=== PATIENT | female | born 1985 | race Caucasian/White ===

== ENCOUNTER → 2019-02-06 15:48 | Outpatient (ROUT) | payer SELFPAY | PROVIDERS: Visit Provider Family Medicine | DX: Z34.90 Encounter for supervision of normal pregnancy, unspecified, unspecified trimester (principal) | CPT/HCPCS: 87081 ==

== ENCOUNTER 2019-03-04 12:20 | Outpatient (CLI) | payer BC, SELFPAY | END 2019-03-04 13:00 | disposition home or self-care (01) | LOC: LABOR 12:37 → OB 03-05 13:42 | PROVIDERS: Visit Provider Family Medicine | DX: Z34.83 Encounter for supervision of other normal pregnancy, third trimester (principal); Z3A.40 40 weeks gestation of pregnancy | CPT/HCPCS: 59025; G0378; G0379 ==

== ENCOUNTER 2019-03-05 07:07 | Inpatient (IN) | payer OTHER, SELFPAY ==
--- NOTE | 2019-03-05 07:42 | P.HPOB_ITS ---
OB HPI Date/Time Date of admission: 03/05/19 Date Patient Seen: 03/05/19 Time Patient Seen: 07:43 History of Present Condition Chief complaint: OBS : 4 Para: 1 Estimated Date of Delivery: 03/04/19 Estimated Gestational Age (weeks): 40 07/09 Narrative: Asya Wilson is a 33 year old female who presents for induction for persistent latent phase labor with no significant change. Fatiguing. Requesting induction. Patient otherwise is a at 40 weeks plus who has had no significant complications during this . Has not smoked since baby was less than 12 weeks. No other complaints. No problems. Contractions have been persistent keeping her awake but not increasing in intensity. No leaking fluid. No other change or complaint. Past medical history significant for history of migraines, history of smoking, history of depression, none of which has been significantly active during this . Did have reflux and was started on treatment Past surgical history none Indications Indication for induction OB: maternal discomfort Other reason(s) for admission: Severe fatigue and patient request History of Present care: good care Dating criteria: LMP confirmed by 1st trimester US Ultrasounds: normal 1st trimester US and normal mid trimester US Obstetrical complications: none Medical complications: none Preadmission Labs Blood type: O (+) positive -: Antibody screen: negative, Cystic fibrosis screen: unknown, GBS status: negative, HBsAG: negative, HIV: negative, HSV 1: negative, HSV 2: negative and RPR/VDLR: negative -: Chlamydia screen: not detected and Gonorrhea screen: not detected -: Rubella: immune and Varicella: immune HCAB: negative PAP: Normal Sequential screen: refused Prior (ies) History: Two for 1638 weeks 41 hours epidural [facility] male 9 lb 8 oz, 11 14 miscarriage, 215 miscarriage Evaluation Evaluation Category of Tracing: I Cervical dilation (cm): 2 Cervical effacement (%): 60 station: -1 [facility] Social History Smoking Status: Former smoker Meds Home Medications and Allergies Home Medications Medication Instructions Recorded Confirmed Type No Known Home Medications 03/05/19 03/05/19 History Allergies Allergy/AdvReac Type Severity Reaction Status Date / Time fluoxetine Allergy jaw pain Verified 03/05/19 08:28 Review of Systems Review of Systems ROS Unobtainable: All systems reviewed & are unremarkable except as noted in HPI and below Exam Vital Signs (past 8 hours): Alert smiling female no acute distress. Lungs are clear. Heart regular rate and rhythm. Abdomen is gravid. Vertex. Estimated weight 9 lb. Extremities without cyanosis clubbing edema. Neurologic exam normal reflexes Objective Labs Result Diagrams: 03/05/19 07:45 Assessment and Plan Assessment and Plan Assessment and Plan narrative: term requesting induction. Should be right by cervical evaluation. Pitocin today. Rupture is seen as we can. Discussed with patient. Risks and benefits. Questions answered. Follow-up as day progresses.
[2019-03-05] MEDS: LACTATED RINGERS 1,000 ML 100 ML IV (08:01)
[2019-03-05] MEDS: OXYTOCIN PREMIX 30 UNIT/500 ML PLAST..BAG IV (08:01)
[2019-03-05 08:11] VITALS: BP 107/57
--- NOTE | 2019-03-05 08:32 | P.HPOB_ITS ---
OB HPI History of Present Condition Chief complaint: OBS Narrative: Asya Wilson is a 33 year old female [facility] Social History Smoking Status: Former smoker Meds Home Medications and Allergies Home Medications Medication Instructions Recorded Confirmed Type No Known Home Medications 03/05/19 03/05/19 History Allergies Allergy/AdvReac Type Severity Reaction Status Date / Time fluoxetine Allergy jaw pain Verified 03/05/19 08:28 Objective Labs Result Diagrams: 03/05/19 07:45
[2019-03-05 08:33] LABS: Add Manual Diff / Slide Review NO; Basophils Absolute Auto 0 /uL (0-100); Basophils Percent Auto 0.4 % (0-2); Eosinophils Absolute Auto 100 /uL (0-450); Eosinophils Percent Auto 1.8 % (2-4); Hematocrit 31.7 % (36-46); Hemoglobin 10.9 g/dL (12.0-16.0); Lymphocytes Absolute Auto 1600 /uL (1100-4500); Lymphocytes Percent Auto 22.2 % (25-40); Mean Corpuscular HGB Conc 34.4 % (30-36); Mean Corpuscular Hemoglobin 29.7 PG (26-34); Mean Corpuscular Volume 86.5 fL (80-100); Monocytes Absolute Auto 700 /uL (0-900); Monocytes Percent Auto 10.1 % (3-14); Neutrophils Absolute Auto 4800 /uL (1500-7000); Neutrophils Percent Auto 65.5 % (50-75); Platelet Count 136 X10^3/uL (150-400); Red Blood Cell Count 3.67 X10^6/uL (4.0-5.2); Red Cell Distribution Width 14.3 % (11.6-14.8); White Blood Cell Count 7.3 X10^3/uL (4.5-11.0)
--- NOTE | 2019-03-05 08:35 | PM.PROC.1 ---
Procedures Date/Time Date of procedure: 03/05/19 Time of procedure: 08:35 General Procedure description: Patient with normal heart monitor category 1 check revealed 2 cm 60% -1 vertex intact. AROM was undertaken with clear fluid.
[2019-03-05] MEDS: FENT 2MCG/ML BUPIV 0.125% EPI 200 MCG/100 ML PLAST..BAG 15 MCG EPIDURAL (10:45)
--- NOTE | 2019-03-05 13:07 | PM.OBPNLAB ---
Date/Time Date Patient Seen: 03/05/19 Time Patient Seen: 13:07 Pain Control Pain control: epidural Pelvic Exam Dilation (cm): 5 Effacement (%): 75 station: -2 Amniotic membrane status: Ruptured Contractions Contraction pattern: Regular Status status: Category l Assessment and Plan Assessment: active labor and induction ongoing Comments: Will continue PET certainly cervical change is happening but need more pressure on the cervix baby needs to descend. If not much descent will need to look at positioning. Patient understands questions answered recheck 2 hours
--- NOTE | 2019-03-05 16:34 | PM.OBPNLAB ---
Date/Time Date Patient Seen: 03/05/19 Time Patient Seen: 16:34 Pain Control Pain control: epidural Pelvic Exam Dilation (cm): 9 Effacement (%): 100 station: -2 Amniotic membrane status: Ruptured Contractions Contractions on admission: regular Pitocin rate (mU/min): 13 Contraction pattern: Regular Status status: Category l Assessment and Plan Assessment: active labor and induction ongoing Plan: continuous present management
--- NOTE | 2019-03-05 21:40 | PM.OBPRVD ---
Labor & Delivery Delivery date: 03/05/19 Intrapartal events: None Cervical ripening method: none Induction method: AROM Delivery augmentation: pitocin Delivery monitor: external uterine Route of delivery: L&D Laceration Description: Perineal - 2nd Degree Delivery repair: vicryl Estimated blood loss (mL): 200 Anesthesia type: Epidural Complications: None Narrative: Patient was brought in for induction for 40 weeks and large infant and persistent prodrome labor latent phase. Patient had some small changes but otherwise really no major issues. First stage patient was ruptured immediately upon presentation through 2 cm cervix. Clear fluid. heart monitor remained stable. Pitocin was began and was pushed up to 8 milliunits. heart monitor was category 1 throughout the 1st stage. Patient had some slowing initially but position changes increased improvement in speed of contractions and positional change. Patient then pretty rapidly went from 5-10. At this point she was placed in lithotomy position and was behind to hold legs. Second-stage went relatively quickly at 4-5 pushes with DELFIN over second-degree midline tear child was delivered head and shoulder anterior and then bulb suctioned mouth and nose. Shoulders delivered easily up onto the abdomen. Delayed clamp was then done to the cord. Grandmother cut cord. No resuscitation was required. Cord bloods were obtained. Placenta delivered spontaneous intact 3 vessels. Perineal tear was then evaluated with excellent anesthesia already. Close than usual running Vicryl manner. No complications. EBL less than 200 cc. Mother and were in stable condition.
[2019-03-05] MEDS: IBUPROFEN 600 MG TABLET PO (22:16)
[2019-03-05] MEDS: DERMOPLAST SPRAY 20% 60 ML 1 SPRAY TOP (22:18)
[2019-03-06] MEDS: ACETAMINOPHEN 325 MG TABLET 650 MG PO ×2 (03:53→09:32)
[2019-03-06] MEDS: IBUPROFEN 600 MG TABLET PO ×3 (03:54→17:00)
[2019-03-06 05:41] LABS: Hemoglobin 9.4 g/dL (12.0-16.0)
[2019-03-06] MEDS: DOCUSATE 250 MG CAPSULE PO (09:30)
[2019-03-06] MEDS: HYDROCODONE/ACET 5/325 TABLET 1 TAB PO ×2 (11:21→17:00)
--- NOTE | 2019-03-06 18:26 | P.DS_ITS ---
Discharge Providers Provider Date of admission: 03/05/19 07:07 Discharge Date: 03/06/19 Primary care physician: Dr. Fabrizio Patton Consults: 03/05/19 18:23 Consult to Research Statistician Routine Comment: Discharge provider: Adam Patton MD Summary Hospital Course Date Patient Seen: 03/06/19 Time Patient Seen: 18:26 Procedures: , induction of labor with a ROM, augmentation of labor with Pitocin Hospital Course: Patient recovered over the 1st 4 hours. Did well. Had some minimal pain initially but started having more pain more cramping with breast-feeding. Minimal bleeding. Was given a hydrocodone on the 1st day and did well. Amite li ke it controlled her pain. Was also using ibuprofen which she felt was going well. Appetite was good. Tolerated p.o. well. Breast-feeding was going well no major issues. Requesting to go home. Peripartum Data Infant Delivery Method: Natural Vaginal Laceration description: Perineal - 2nd Degree Episiotomy description: None Procedures: Second degree midline tear repair complications: none Status at Discharge Cognitive/behavioral status at discharge: at baseline, oriented Functional status at discharge: independent ambulation Overall status at discharge: patient is progressing back to baseline Time Spent with Patient Time attestation: Total time spent providing and/or coordinating discharge services: Specific discharge activities: No intercourse for the next 6 weeks. Slow increase in activity okay. Do not resume smoking Objective Labs Result Diagrams: 03/06/19 05:10 Labs: Laboratory Results - last 24 hr 03/06/19 05:10 Hgb 9.4 L Hct 27.0 L Discharge Plan Discharge Plan Patient Disposition: Home Discharge Med Rec/Prescriptions Prescriptions: New hydrocodone-acetaminophen 5-325 mg Tablet 1 tab PO Q4HR PRN (Reason: Pain, Moderate (4-6)) Qty: 30 RF: 0 ibuprofen 600 mg Tablet 600 mg PO Q6HR PRN (Reason: Pain, Mild (1-3)) Qty: 90 RF: 0 Follow up/Referrals: Adam Patton MD [Physician] - 6 Weeks (please call for appointment) Provider Discharge Instructions Diet: Diet as Tolerated Activity: no intercourse until no bleeding and no pain. slow increase activity Skin/Wound/Dressing Care Report to your healthcare provider any signs of infection, such as:: chills, fever Visit Report/Discharge Packet Stand Alone Forms: Discharge: Care Visit Report Forms: Stroke Signs & Symptoms
== END 2019-03-06 18:30 | disposition home or self-care (01) | DRG 807 ==
PROVIDERS: Admitting Provider Family Medicine; Visit Provider Family Medicine
DX: O75.81 Maternal exhaustion complicating labor and delivery (principal); Z37.0 Single live birth; O70.1 Second degree perineal laceration during delivery; Z3A.40 40 weeks gestation of pregnancy
CPT/HCPCS: 01967; 36415; 59050; 85014; 85018; 85025; 86850; 86900; 86901; G0379; J2590

== ENCOUNTER 2019-06-16 13:56 | Emergency (ER) | payer OTHER, SELFPAY ==
[2019-06-16] VITALS (7 sets, daily range): BP systolic 102–132; BP diastolic 58–82; PULSE 79–96; RESP 13–22; TEMP 37; O2SAT 96–98
--- NOTE | 2019-06-16 14:32 | ED_ITS ---
HPI - General Adult <Jennifer Agustin MD - Last Filed: 06/17/19 07:21> General Chief complaint: Dizziness Stated complaint: Dizzy, Light Headed, High BP Time Seen by Provider: 06/16/19 14:31 Source: patient Mode of arrival: Ambulatory History of Present Illness HPI narrative: 34-year-old at 3 months presents with erratic blood pressure and episodes of lightheadedness developing over the last 16 days. She has been tracking her blood pressure and his noted a systolic low of 98 a systolic high of 178 and a diastolic single high measurement of 118. The majority of her pressures are in the 140/70 range. She notes that she has been having more episodes of palpitations and her EKG also shows frequent PVCs. She describes as normal spontaneous vaginal without excessive blood loss or episodes of significant hypotension surrounding delivery. She is breast- feeding and otherwise recovering nicely after her recent . She states that she is eating and drinking normally and the episodes of dizziness as well as erratic blood pressure does not seem to be related to diet Related Data Previous Rx's Medication Instructions Recorded hydrocodone-acetaminophen 1 tab PO Q4HR PRN #30 tab 03/06/19 ibuprofen 600 mg PO Q6HR PRN #90 tab 03/06/19 Allergies Allergy/AdvReac Type Severity Reaction Status Date / Time fluoxetine Allergy jaw pain Verified 03/05/19 08:28 Review of Systems <Jennifer Agustin MD - Last Filed: 06/17/19 07:21> Review of Systems Narrative: Denies ? fever ? cough ? cold ? chills ? chest pain ? dyspnea ? orthopnea ? wheezing ? abdominal pain ? change to bowel or bladder habits ? nausea vomiting ? skin changes no Increased lower extremity edema, she is currently breast feeding Patient History <Jennifer Agustin MD - Last Filed: 06/17/19 07:21> Social History Smoking Status: Current every day smoker Smoking Status: Current every day smoker Exam <Jennifer Agustin MD - Last Filed: 06/17/19 07:21> Narrative Exam Narrative: General: Healthy appearing, in no acute distress. Able to give a complete and coherent history. Well-nourished well-developed HEENT: Moist mucous membranes, normal sclera with reactive pupils, Neck: No JVD, supple Respiratory: Lungs are clear to auscultation, no wheezing no rales no rhonchi. Full and symmetrical air movement Cardiac: Regular rate and rhythm no murmurs no bruits Abdomen: Soft nontender good bowel tones, no flank pain Skin: Warm and dry, no rashes Neurologic: Grossly neurologically intact with no obvious asymmetries or abnormalities Extremities: No trauma, well perfused Psych: Cooperative, appropriate insight and affect Initial Vital Signs Initial Vital Signs: Vital Signs Temperature 98.6 F 06/16/19 13:59 Pulse Rate 84 06/16/19 13:59 Respiratory Rate 22 06/16/19 13:59 Blood Pressure 123/82 06/16/19 13:59 Pulse Oximetry 97 06/16/19 13:59 <Adam Chandra MD - Last Filed: 06/16/19 21:16> Initial Vital Signs Initial Vital Signs: Vital Signs Temperature 98.6 F 06/16/19 13:59 Pulse Rate 84 06/16/19 13:59 Respiratory Rate 22 06/16/19 13:59 Blood Pressure 123/82 06/16/19 13:59 Pulse Oximetry 97 06/16/19 13:59 Course <Jennifer Agustin MD - Last Filed: 06/17/19 07:21> Orders Ordered: Discontinued Medications Sodium Chloride (Normal Saline 0.9%) 500 mls @ 1,000 mls/hr IV BOLUS ONE Stop: 06/16/19 15:24 Last Infusion: 06/16/19 15:40 Dose: 0 mls/hr Documented by: Admin: 06/16/19 15:01 Dose: 1,000 mls/hr Documented by: BERNABE Sodium Chloride (Normal Saline 0.9%) 1,000 mls @ 1,000 mls/hr IV BOLUS ONE Stop: 06/16/19 20:42 Last Infusion: 06/16/19 21:04 Dose: 0 mls/hr Documented by: Admin: 06/16/19 19:54 Dose: 1,000 mls/hr Documented by: BERNABE Reevaluation(s) Reevaluation #1: Feeling generally unwell with episodes of PVCs that seem to be symptomatic. A L of fluid has not made any difference. Have reviewed blood work. No evidence of preeclampsia or HELLP syndrome or pituitary dysfunction secondary to hemorrhage. Her D-dimer was elevated so she will be going for a CTa. Reviewed all of those findings with her all questions answered Time: 18:01 Vital Signs Vital signs: Vital Signs - 8 hr 06/16/19 13:59 06/16/19 15:00 06/16/19 16:44 Temperature 98.6 F Pulse Rate 84 79 84 Respiratory Rate 22 13 18 Blood Pressure 123/82 Blood Pressure [Right Arm] 110/65 112/74 Pulse Oximetry 97 97 96 06/16/19 17:50 06/16/19 19:30 06/16/19 20:06 Temperature Pulse Rate 96 H 86 85 Respiratory Rate 19 18 16 Blood Pressure Blood Pressure [Right Arm] 117/58 L 107/72 132/75 Pulse Oximetry 98 98 96 06/16/19 20:58 Temperature Pulse Rate 86 Respiratory Rate 15 Blood Pressure Blood Pressure [Right Arm] 102/69 Pulse Oximetry <Adam Chandra MD - Last Filed: 06/16/19 21:16> Orders Ordered: Discontinued Medications Sodium Chloride (Normal Saline 0.9%) 500 mls @ 1,000 mls/hr IV BOLUS ONE Stop: 06/16/19 15:24 Last Infusion: 06/16/19 15:40 Dose: 0 mls/hr Documented by: [employer] Admin: 06/16/19 15:01 Dose: 1,000 mls/hr Documented by: [employer] Sodium Chloride (Normal Saline 0.9%) 1,000 mls @ 1,000 mls/hr IV BOLUS ONE Stop: 06/16/19 20:42 Last Infusion: 06/16/19 21:04 Dose: 0 mls/hr Documented by: [employer] Admin: 06/16/19 19:54 Dose: 1,000 mls/hr Documented by: [employer] Vital Signs Vital signs: Vital Signs - 8 hr 06/16/19 13:59 06/16/19 15:00 06/16/19 16:44 Temperature 98.6 F Pulse Rate 84 79 84 Respiratory Rate 22 13 18 Blood Pressure 123/82 Blood Pressure [Right Arm] 110/65 112/74 Pulse Oximetry 97 97 96 06/16/19 17:50 06/16/19 19:30 06/16/19 20:06 Temperature Pulse Rate 96 H 86 85 Respiratory Rate 19 18 16 Blood Pressure Blood Pressure [Right Arm] 117/58 L 107/72 132/75 Pulse Oximetry 98 98 96 06/16/19 20:58 Temperature Pulse Rate 86 Respiratory Rate 15 Blood Pressure Blood Pressure [Right Arm] 102/69 Pulse Oximetry Medical Decision Making <Jennifer Agustin MD - Last Filed: 06/17/19 07:21> Medical Records Medical records reviewed: Yes I reviewed the patient's medical records. Lab Data Lab results reviewed: Yes I reviewed the patient's lab results. Result diagrams: 06/16/19 14:21 06/16/19 14:21 Labs: Lab Results 06/16/19 06/16/19 06/16/19 Range/Units 14:21 14:21 14:21 WBC 9.4 (4.5-11.0) X10^3/uL RBC 4.64 (4.0-5.2) X10^6/uL Hgb 13.1 (12.0-16.0) g/dL Hct 38.5 (36-46) % MCV 83.0 (80-100) fL MCH 28.2 (26-34) PG MCHC 34.0 (30-36) % RDW 14.4 (11.6-14.8) % Plt Count 229 (150-400) X10^3/uL Neut % (Auto) 57.1 (50-75) % Lymph % (Auto) 28.7 (25-40) % [place] % (Auto) 9.6 (3-14) % Eos % (Auto) 3.9 (2-4) % Baso % (Auto) 0.7 (0-2) % Neut # (Auto) 5400 (4993-5229) /uL Lymph # (Auto) 2700 (3905-9200) /uL [place] # (Auto) 900 (0-900) /uL Eos # (Auto) 400 (0-450) /uL Baso # (Auto) 100 (0-100) /uL D-Dimer 343 H (<230) ng/mL Sodium 140 (137-145) mmol/L Potassium 3.9 (3.4-5.1) mmol/L Chloride 102 (98-107) mmol/L Carbon Dioxide 29 (22-32) mmol/L BUN 14 (7-17) mg/dL Creatinine 0.60 (0.52-1.04) mg/dL Estimated GFR > 60.0 (>60) mL/min BUN/Creatinine Ratio 23.3 H (6-22) Glucose 96 (70-100) mg/dL Calcium 10.0 (8.4-10.2) mg/dL Total Bilirubin 0.5 (0.2-1.3) mg/dL AST 30 (14-36) IU/L ALT 31 (<35) IU/L Alkaline Phosphatase 109 (38-126) U/L Total Protein 7.8 (6.3-8.2) g/dL Albumin 4.6 (3.5-5.0) g/dL Globulin 3.2 (1.7-4.1) g/dL Albumin/Globulin Ratio 1.4 (1.0-2.8) TSH (0.47-4.68) uIU/mL Free T4 (0.78-2.19) ng/dL 06/16/19 06/16/19 Range/Units 14:21 14:21 WBC (4.5-11.0) X10^3/uL RBC (4.0-5.2) X10^6/uL Hgb (12.0-16.0) g/dL Hct (36-46) % MCV (80-100) fL MCH (26-34) PG MCHC (30-36) % RDW (11.6-14.8) % Plt Count (150-400) X10^3/uL Neut % (Auto) (50-75) % Lymph % (Auto) (25-40) % [place] % (Auto) (3-14) % Eos % (Auto) (2-4) % Baso % (Auto) (0-2) % Neut # (Auto) (8150-7988) /uL Lymph # (Auto) (7232-5916) /uL [place] # (Auto) (0-900) /uL Eos # (Auto) (0-450) /uL Baso # (Auto) (0-100) /uL D-Dimer (<230) ng/mL Sodium (137-145) mmol/L Potassium (3.4-5.1) mmol/L Chloride (98-107) mmol/L Carbon Dioxide (22-32) mmol/L BUN (7-17) mg/dL Creatinine (0.52-1.04) mg/dL Estimated GFR (>60) mL/min BUN/Creatinine Ratio (6-22) Glucose (70-100) mg/dL Calcium (8.4-10.2) mg/dL Total Bilirubin (0.2-1.3) mg/dL AST (14-36) IU/L ALT (<35) IU/L Alkaline Phosphatase (38-126) U/L Total Protein (6.3-8.2) g/dL Albumin (3.5-5.0) g/dL Globulin (1.7-4.1) g/dL Albumin/Globulin Ratio (1.0-2.8) TSH < 0.02 L (0.47-4.68) uIU/mL Free T4 1.64 (0.78-2.19) ng/dL Point of Care Testing Test Results Negative Urine Dip Bedside Urine Glucose Negative Bedside Urine Bilirubin - Negative Bedside Urine Ketone - Negative Urine Specific [place] 1.005 Bedside Urine Occult Blood + Bedside Urine pH 6.5 Bedside Urine Protein - Negative Bedside Urine Urobilinogen - Negative Bedside Urine Nitrite - Negative Elevated D-dimer. With current clinical setting P is certainly a possibility. Will move to CT study Point of care testing: Point of Care Testing Test Results Negative Urine Dip Bedside Urine Glucose Negative Bedside Urine Bilirubin - Negative Bedside Urine Ketone - Negative Urine Specific [place] 1.005 Bedside Urine Occult Blood + Bedside Urine pH 6.5 Bedside Urine Protein - Negative Bedside Urine Urobilinogen - Negative Bedside Urine Nitrite - Negative ECG Data Attestation: I personally reviewed and interpreted this ECG as follows: Interpretation: Normal sinus rhythm at a rate of 79 Frequent PVCs No acute ischemia <Adam Chandra MD - Last Filed: 06/16/19 21:16> Lab Data Labs: Lab Results 06/16/19 06/16/19 06/16/19 Range/Units 14:21 14:21 14:21 WBC 9.4 (4.5-11.0) X10^3/uL RBC 4.64 (4.0-5.2) X10^6/uL Hgb 13.1 (12.0-16.0) g/dL Hct 38.5 (36-46) % MCV 83.0 (80-100) fL MCH 28.2 (26-34) PG MCHC 34.0 (30-36) % RDW 14.4 (11.6-14.8) % Plt Count 229 (150-400) X10^3/uL Neut % (Auto) 57.1 (50-75) % Lymph % (Auto) 28.7 (25-40) % [place] % (Auto) 9.6 (3-14) % Eos % (Auto) 3.9 (2-4) % Baso % (Auto) 0.7 (0-2) % Neut # (Auto) 5400 (8761-1206) /uL Lymph # (Auto) 2700 (5269-4841) /uL [place] # (Auto) 900 (0-900) /uL Eos # (Auto) 400 (0-450) /uL Baso # (Auto) 100 (0-100) /uL D-Dimer 343 H (<230) ng/mL Sodium 140 (137-145) mmol/L Potassium 3.9 (3.4-5.1) mmol/L Chloride 102 (98-107) mmol/L Carbon Dioxide 29 (22-32) mmol/L BUN 14 (7-17) mg/dL Creatinine 0.60 (0.52-1.04) mg/dL Estimated GFR > 60.0 (>60) mL/min BUN/Creatinine Ratio 23.3 H (6-22) Glucose 96 (70-100) mg/dL Calcium 10.0 (8.4-10.2) mg/dL Total Bilirubin 0.5 (0.2-1.3) mg/dL AST 30 (14-36) IU/L ALT 31 (<35) IU/L Alkaline Phosphatase 109 (38-126) U/L Total Protein 7.8 (6.3-8.2) g/dL Albumin 4.6 (3.5-5.0) g/dL Globulin 3.2 (1.7-4.1) g/dL Albumin/Globulin Ratio 1.4 (1.0-2.8) TSH (0.47-4.68) uIU/mL Free T4 (0.78-2.19) ng/dL 06/16/19 06/16/19 Range/Units 14:21 14:21 WBC (4.5-11.0) X10^3/uL RBC (4.0-5.2) X10^6/uL Hgb (12.0-16.0) g/dL Hct (36-46) % MCV (80-100) fL MCH (26-34) PG MCHC (30-36) % RDW (11.6-14.8) % Plt Count (150-400) X10^3/uL Neut % (Auto) (50-75) % Lymph % (Auto) (25-40) % [place] % (Auto) (3-14) % Eos % (Auto) (2-4) % Baso % (Auto) (0-2) % Neut # (Auto) (0001-9875) /uL Lymph # (Auto) (2967-1614) /uL [place] # (Auto) (0-900) /uL Eos # (Auto) (0-450) /uL Baso # (Auto) (0-100) /uL D-Dimer (<230) ng/mL Sodium (137-145) mmol/L Potassium (3.4-5.1) mmol/L Chloride (98-107) mmol/L Carbon Dioxide (22-32) mmol/L BUN (7-17) mg/dL Creatinine (0.52-1.04) mg/dL Estimated GFR (>60) mL/min BUN/Creatinine Ratio (6-22) Glucose (70-100) mg/dL Calcium (8.4-10.2) mg/dL Total Bilirubin (0.2-1.3) mg/dL AST (14-36) IU/L ALT (<35) IU/L Alkaline Phosphatase (38-126) U/L Total Protein (6.3-8.2) g/dL Albumin (3.5-5.0) g/dL Globulin (1.7-4.1) g/dL Albumin/Globulin Ratio (1.0-2.8) TSH < 0.02 L (0.47-4.68) uIU/mL Free T4 1.64 (0.78-2.19) ng/dL Point of Care Testing Test Results Negative Urine Dip Bedside Urine Glucose Negative Bedside Urine Bilirubin - Negative Bedside Urine Ketone - Negative Urine Specific [place] 1.005 Bedside Urine Occult Blood + Bedside Urine pH 6.5 Bedside Urine Protein - Negative Bedside Urine Urobilinogen - Negative Bedside Urine Nitrite - Negative Point of care testing: Point of Care Testing Test Results Negative Urine Dip Bedside Urine Glucose Negative Bedside Urine Bilirubin - Negative Bedside Urine Ketone - Negative Urine Specific [place] 1.005 Bedside Urine Occult Blood + Bedside Urine pH 6.5 Bedside Urine Protein - Negative Bedside Urine Urobilinogen - Negative Bedside Urine Nitrite - Negative Imaging Data Chest x-ray: Radiologist's impression: Normal Chest CTA: Radiologist's impression: No evidence of PE. No acute findings. Normal study. MDM Narrative Medical decision making narrative: I assume care from Dr. Renee at change of shift. The patient presents with labile blood pressure readings, she is 3 months . She describes significant issues getting adequate sleep. She has had periods of dizziness. She has no chest pain, or syncope/near syncope associated with the symptoms. She has not been acutely ill. Blood pressure monitor in the ER is very reassuring, her last blood pressure reading was 109 systolic. She is currently asymptomatic. Her evaluation has been benign. On my exam: General: Alert oriented, no apparent distress. She is well hydrated. Lungs clear to auscultation. Heart: RR, no murmur. Normal S1-S2. Back: Nontender Extremities: Full range of motion. No lower extremity edema. Negative Homans sign. Normal peripheral pulses. Neuro: Exam intact. Course of treatment: Labs reviewed. Radiology studies reviewed. telemetry monitor is normal. Care was discussed with the patient her . I advise she focus on maintaining good hydration, and rest as much as possible. She is to continue to keep blood pressure readings. She has a follow-up appointment scheduled with her PCM later this week. Discharge Plan Departure Patient Disposition: Home Clinical Impression: Hypertension Qualifiers: Hypertension type: unspecified Qualified Code(s): I10 - Essential (primary) hypertension Discharge Date/Time: 06/16/19 21:20 Instructions: Essential Hypertension Activity Restrictions/Additional Instructions: Continue to monitor blood pressure. Be sure you stay well hydrated, in sleep as much as you can. A think her nathalia bility sleep with a new baby may be contributing to all of your symptoms. Follow-up with her doctor as scheduled. Take your blood pressure records with you. Discuss other features of a life like the inability to get adequate sleep with a at home. Return to the ER if symptoms escalate. Return for chest pain, difficulty breathing, headache, or confusion. Prescriptions: No Action hydrocodone-acetaminophen 5-325 mg Tablet 1 tab PO Q4HR PRN (Reason: Pain, Moderate (4-6)) Qty: 30 RF: 0 ibuprofen 600 mg Tablet 600 mg PO Q6HR PRN (Reason: Pain, Mild (1-3)) Qty: 90 RF: 0 Referrals: Juvenal Warren MD [Primary Care Provider] - ED Sign-out <Jennifer Agustin MD - Last Filed: 06/17/19 07:21> Sign Out Provider Sign Out Attestation: 34-year-old woman who is 3 months comes in with labile blood pressure and intermittent episodes of palpitations. Initial workup is unremarkable specifically no preeclampsia no help syndrome. Vitals have been stable while here she has not responded to a L of fluid in feeling better. Her D-dimer is elevated and she currently is awaiting CT scanning for PE.
[2019-06-16 14:42] LABS: Add Manual Diff / Slide Review NO; Basophils Absolute Auto 100 /uL (0-100); Basophils Percent Auto 0.7 % (0-2); Eosinophils Absolute Auto 400 /uL (0-450); Eosinophils Percent Auto 3.9 % (2-4); Hematocrit 38.5 % (36-46); Hemoglobin 13.1 g/dL (12.0-16.0); Lymphocytes Absolute Auto 2700 /uL (1100-4500); Lymphocytes Percent Auto 28.7 % (25-40); Mean Corpuscular Hemoglobin 28.2 PG (26-34); Monocytes Absolute Auto 900 /uL (0-900); Monocytes Percent Auto 9.6 % (3-14); Neutrophils Absolute Auto 5400 /uL (1500-7000); Neutrophils Percent Auto 57.1 % (50-75); Platelet Count 229 X10^3/uL (150-400); Red Blood Cell Count 4.64 X10^6/uL (4.0-5.2); Red Cell Distribution Width 14.4 % (11.6-14.8); White Blood Cell Count 9.4 X10^3/uL (4.5-11.0)
[2019-06-16 14:54] LABS: Alanine Aminotransferase 31 IU/L (<35); Albumin 4.6 g/dL (3.5-5.0); Albumin Globulin Ratio 1.4 (1.0-2.8); Alkaline Phosphatase 109 U/L (38-126); Aspartate Aminotransferase 30 IU/L (14-36); BUN Creatinine Ratio 23.3 (6-22); Bilirubin Total 0.5 mg/dL (0.2-1.3); Blood Urea Nitrogen 14 mg/dL (7-17); Carbon Dioxide 29 mmol/L (22-32); Chloride 102 mmol/L (98-107); Estimated Glomerular Filt Rate > 60.0 mL/min (>60); Globulin 3.2 g/dL (1.7-4.1); Glucose 96 mg/dL (70-100); HEMOLYSIS < 15 (0-50); Potassium 3.9 mmol/L (3.4-5.1); Sodium 140 mmol/L (137-145); Total Protein 7.8 g/dL (6.3-8.2)
[2019-06-16] MEDS: SODIUM CHLORIDE 0.9% 500 ML 1000 ML IV (15:01)
--- NOTE | 2019-06-16 15:27 | DI.RAD.S_ITS ---
PROCEDURE: XR CHEST 1V INDICATIONS: weakness, High BP TECHNIQUE: One view of the chest was acquired. COMPARISON: None. FINDINGS: Surgical changes and devices: There are multiple overlying leads and wires limiting evaluation. Lungs and pleura: Lungs are clear. No pleural effusions or pneumothorax. Mediastinum: Mediastinal contours appear normal. Heart size is normal. Bones and chest wall: No suspicious bony lesions. Overlying soft tissues appear unremarkable. IMPRESSION: 1. No acute cardiopulmonary disease. Dictated by: Ming Urbano M.D. on 06/16/2019 at 15:13 Approved by: Ming Urbano M.D. on 06/16/2019 at 15:14
[2019-06-16 15:38] LABS: D Dimer 343 ng/mL (<230)
[2019-06-16 16:03] LABS: Free T4, Direct Thyroxine 1.64 ng/dL (0.78-2.19)
[2019-06-16 16:16] LABS: Thyroid Stimulating Hormone < 0.02 uIU/mL (0.47-4.68)
--- NOTE | 2019-06-16 19:43 | DI.CT.S_ITS ---
PROCEDURE: CT ANGIO CHEST PE PROTOCOL INDICATIONS: Multiple vague symptons, elevated d dimer. TECHNIQUE: After the administration of intravenous contrast, 2 mm thick sections acquired from the pulmonary apices to the posterior costophrenic angles. 3-dimensional maximum intensity projection (MIP) coronal and sagittal reformats were then acquired through the thorax. For radiation dose reduction, the following was used: automated exposure control, adjustment of mA and/or kV according to patient size. COMPARISON: None. FINDINGS: Image quality: Excellent. Pulmonary arteries: Pulmonary arteries are normal in size, and demonstrate no intraluminal filling defects to suggest central pulmonary embolism. Lungs and pleura: Lungs are clear. No pleural effusions or pneumothorax. Central and peripheral airways are patent. Mediastinum: Heart size is normal, without pericardial effusion. No mediastinal or hilar adenopathy. Thoracic aorta is normal in caliber and enhancement. Esophagus is normal in caliber, without hiatal hernia. Bones and chest wall: No suspicious bony lesions. Ribs and thoracic spine appear intact throughout. Thyroid gland is within normal limits. No axillary or supraclavicular adenopathy. Abdomen: Visualized upper abdominal solid organs appear normal in the early arterial phase of enhancement. IMPRESSION: 1. No evidence of pulmonary emboli. No thoracic aortic aneurysm or dissection. 2. Bilateral lungs are clear. Dictated by: Moe Garcia M.D. on 06/16/2019 at 20:53 Approved by: Moe Garcia M.D. on 06/16/2019 at 20:58
[2019-06-16] MEDS: SODIUM CHLORIDE 0.9% 1,000 ML 1000 ML IV (19:54)
== END 2019-06-16 21:20 | disposition home or self-care (01) ==
PROVIDERS: Emergency Medicine; Nurse Practitioner Family; Emergency Provider Emergency Medicine; PCP Family Medicine
DX: I10 Essential (primary) hypertension (principal); R42 Dizziness and giddiness; R00.2 Palpitations
CPT/HCPCS: 36415; 71045; 71275; 80053; 81003; 81025; 84439; 84443; 85025; 85379; 93005; 93010; 96360; 96361; 99284; 99285; Q9967